=== PATIENT | male | born 1985 | race Caucasian/White ===

== ENCOUNTER 2019-02-23 13:05 | Emergency (ER) | payer SELFPAY ==
[~2019-02-23] VITALS: Ht 172.7 cm; Wt 104.3 kg
== END 2019-02-23 14:25 | disposition home or self-care (01) ==
LOC: ED 13:05
DX: S81.012A Laceration without foreign body, left knee, initial encounter (principal); S91.211A Laceration without foreign body of right great toe with damage to nail, initial encounter; X58.XXXA Exposure to other specified factors, initial encounter; Y93.89 Activity, other specified; Y92.89 Other specified places as the place of occurrence of the external cause; Y99.8 Other external cause status